=== PATIENT | female | born 1995 | race Two or more races ===

== ENCOUNTER → 2020-03-13 13:42 | Outpatient (CLI) | payer OTHER | END | disposition home or self-care (01) | LOC: LAB 13:42 | PROVIDERS: ATTEND Emergency Medicine Pediatric Emergency Medicine | DX: Z20.828 Contact with and (suspected) exposure to other viral communicable diseases (principal); Z03.818 Encounter for observation for suspected exposure to other biological agents ruled out ==

== ENCOUNTER 2021-03-02 16:34 | Outpatient (CLI) | payer OTHER | END 2021-03-02 18:00 | disposition home or self-care (01) | LOC: LAB 16:34 | PROVIDERS: ATTEND Emergency Medicine Pediatric Emergency Medicine | DX: Z20.818 Contact with and (suspected) exposure to other bacterial communicable diseases (principal) ==

== ENCOUNTER 2021-04-06 08:00 | Outpatient (CLI) | payer OTHER | END 2021-04-06 08:30 | disposition home or self-care (01) | LOC: PPH VACUNA 08:00 | PROVIDERS: ATTEND Emergency Medicine Pediatric Emergency Medicine | DX: Z23 Encounter for immunization (principal) ==

== ENCOUNTER 2021-04-06 09:41 | Outpatient (CLI) | payer OTHER | END 2021-04-06 09:47 | disposition home or self-care (01) | LOC: LAB 09:41 | PROVIDERS: ATTEND Emergency Medicine Pediatric Emergency Medicine | DX: Z03.818 Encounter for observation for suspected exposure to other biological agents ruled out (principal) ==

== ENCOUNTER 2021-07-05 08:00 | Outpatient (CLI) | payer OTHER ==
[2021-08-08] MEDS ORDERED: ACETAMINOPHEN500 M2 (08:46)
== END 2021-07-05 08:30 | disposition home or self-care (01) ==
LOC: PPH VACUNA 08:00
PROVIDERS: ATTEND Emergency Medicine Pediatric Emergency Medicine
DX: Z23 Encounter for immunization (principal)
CPT/HCPCS: 90686; G0008

== ENCOUNTER 2021-07-20 00:13 | Emergency (ER) | payer OTHER ==
[~2021-07-20] VITALS: Ht 165.1 cm; Wt 54.0 kg
[2021-07-20] MEDS ORDERED: MUCINEX DM ER1 EAC1 PO (05:21)
[2021-07-20] MEDS ORDERED: ACETAMINOPHEN650 M2 PO (05:22)
[2021-07-20] MEDS ORDERED: VITAMIN C WIT1000 MG PO (05:22)
== END 2021-07-20 05:50 | disposition home or self-care (01) ==
LOC: ER 00:13
DX: U07.1 COVID-19 (principal)

== ENCOUNTER 2022-07-13 15:35 | Outpatient (CLI) | payer OTHER ==
[~2022-07-13 15:35] MED LIST: ACETAMINOPHEN500 M2; ACETAMINOPHEN650 M2 PO; MUCINEX DM ER1 EAC1 PO; VITAMIN C WIT1000 MG PO
== END 2022-07-13 15:38 | disposition home or self-care (01) ==
LOC: LAB 15:35
DX: U07.1 COVID-19 (principal)

== ENCOUNTER 2023-01-20 16:08 | Emergency (ER) | payer OTHER ==
[~2023-01-20] VITALS: Ht 165.1 cm; Wt 57.2 kg
[2023-01-20] MEDS ORDERED: DOLOGEN CAPLET1 EACH PO (17:44)
[2023-01-20] MEDS ORDERED: TUSNEL LIQUID178 ML PO (17:44)
[2023-01-20] MEDS ORDERED: ZITHROMAX500 MG PO (17:44)
[2023-01-20] MEDS ORDERED: ZYRTEC10 MG PO (17:44)
== END 2023-01-20 18:11 | disposition home or self-care (01) ==
LOC: ER 16:08
DX: B34.9 Viral infection, unspecified (principal); Z20.822 Contact with and (suspected) exposure to COVID-19

== ENCOUNTER 2023-02-14 12:47 | Outpatient (CLI) | payer OTHER ==
[~2023-02-14 12:47] MED LIST changes: +DOLOGEN CAPLET1 EACH PO; +TUSNEL LIQUID178 ML PO; +ZITHROMAX500 MG PO; +ZYRTEC10 MG PO
== END 2023-02-14 15:10 | disposition home or self-care (01) ==
LOC: LAB 12:47
DX: Z02.1 Encounter for pre-employment examination (principal)

== ENCOUNTER 2023-10-03 14:45 | Outpatient (CLI) | payer OTHER | END 2023-10-03 14:55 | disposition home or self-care (01) | LOC: PPH VACUNA 14:45 | PROVIDERS: ATTEND Emergency Medicine Pediatric Emergency Medicine | DX: Z23 Encounter for immunization (principal) ==

== ENCOUNTER 2024-07-20 14:04 | Outpatient (CLI) | payer OTHER ==
[2024-07-20 15:00] LABS: MYCOPLASMA PNEUMONIAE IGM REACTIVE (NO REACTIVE)
[2024-07-20 15:02] LABS: HEMATOCRIT 36.9 % (36.0-45.00); HEMOGLOBIN 12.8 g/dL (12.0-15.00); MEAN CELL VOLUME 88.9 fL (80.00-100.00); MEAN CORPUSCULAR HEMOGLOBIN 30.9 pg (27.00-32.0); MEAN CORPUSCULAR HGB CONC 34.7 g/dl (32.0-36.0); PLATELET COUNT 184 K/uL (150-450); RED BLOOD COUNT 4.15 M/uL (4.00-6.00); RED CELL DISTRIBUTION WIDTH 13.3 % (11.5-14.5)
[2024-07-21] MEDS ORDERED: BENZONATATE200 M1 PO (13:42)
[2024-07-21] MEDS ORDERED: OSEL75CA PO (13:42)
[2024-07-21] MEDS ORDERED: LEVALBUTER0.63 MG/3 IH (13:42)
== END 2024-07-20 14:11 | disposition home or self-care (01) ==
LOC: LAB 14:04
DX: Z20.828 Contact with and (suspected) exposure to other viral communicable diseases (principal); Z20.822 Contact with and (suspected) exposure to COVID-19; Z20.818 Contact with and (suspected) exposure to other bacterial communicable diseases; J11.1 Influenza due to unidentified influenza virus with other respiratory manifestations; A49.9 Bacterial infection, unspecified; R50.9 Fever, unspecified; J11.08 Influenza due to unidentified influenza virus with specified pneumonia; N92.1 Excessive and frequent menstruation with irregular cycle; E08.9 Diabetes mellitus due to underlying condition without complications

== ENCOUNTER 2024-07-21 11:28 | Emergency (ER) | payer OTHER ==
[~2024-07-21] VITALS: Ht 165.1 cm; Wt 59.0 kg
[2024-07-21] MEDS ORDERED: LEVALBUTEROL HCL 1.25 MG/3 ML SOLUTION IH ONE (12:00)
[2024-07-21] MEDS ORDERED: METHYLPREDNISOLONE SOD SUCC 40 MG VIAL IM ONE (12:00)
[2024-07-21] MEDS ORDERED: CETIRIZINE HCL 5 MG/5 ML ML PO ONE (12:00)
[2024-07-21] MEDS ORDERED: BENZONATATE 200 MG CAPSULE PO ONE (12:00)
[2024-07-21 13:08] LABS: HEMOGLOBIN 13.8 g/dL (12.0-15.00); MEAN CELL VOLUME 89.5 fL (80.00-100.00); MEAN CORPUSCULAR HEMOGLOBIN 30.9 pg (27.00-32.0); MEAN CORPUSCULAR HGB CONC 34.5 g/dl (32.0-36.0); PLATELET COUNT 187 K/uL (150-450); RED BLOOD COUNT 4.47 M/uL (4.00-6.00); RED CELL DISTRIBUTION WIDTH 13.7 % (11.5-14.5)
[2024-07-21] MEDS ORDERED: BENZONATATE200 M1 PO (13:42)
[2024-07-21] MEDS ORDERED: OSEL75CA PO (13:42)
[2024-07-21] MEDS ORDERED: LEVALBUTER0.63 MG/3 IH (13:42)
== END 2024-07-21 14:38 | disposition home or self-care (01) ==
LOC: ER 11:28
PROVIDERS: General Practice
DX: R53.81 Other malaise (principal); J10.1 Influenza due to other identified influenza virus with other respiratory manifestations; Z20.822 Contact with and (suspected) exposure to COVID-19